=== PATIENT | male | born 1945 | race Caucasian/White ===

== ENCOUNTER → 2018-07-29 | Outpatient (CLI) | payer OTHER | LOC: M RAD 11:15 | DX: Z53.9 Procedure and treatment not carried out, unspecified reason (principal) ==

== ENCOUNTER → 2018-08-10 | Outpatient (CLI) | payer OTHER ==
[~2018-08-10] MED LIST: PROHANCE 279.3MG/ML 15ML VIAL (A9576) As Ordered ONE; PROHANCE 279.3MG/ML 5ML VIAL (A9576) As Ordered ONE
--- NOTE | 2018-08-11 08:32 | REP ---
MRI IACs WITHOUT AND WITH CONTRAST: HISTORY: Left hearing loss. CONTRAST: ProHance 16 mL. Areas of increased signal intensity on T2-weighted images are present in the periventricular and subcortical white matter. This represents small vessel ischemic disease. There is no intraparenchymal hemorrhage, infarct, mass, or midline shift. The ventricular system and cortical sulci are dilated consistent with minimal volume loss. There is no extracerebral collection. There is no ___cerebellopontine angle mass ). The inner ear structures are normal in appearance. The mastoid air cells are clear. Minimal mucosal thickening is present in the maxillary sinuses. IMPRESSION: 1. Small vessel ischemic disease. 2. Minimal volume loss. Electronically Signed by Neel Wilson MD 08/11/2018 09:08 A
== END ==
LOC: M RAD 16:39
PROVIDERS: ATTEND Physician Assistant Surgical
DX: H90.A22 Sensorineural hearing loss, unilateral, left ear, with restricted hearing on the contralateral side (principal); R90.82 White matter disease, unspecified
CPT/HCPCS: 70553; A9576

== ENCOUNTER 2019-06-24 12:52 | Emergency (ER) | payer OTHER ==
[~2019-06-24] VITALS: Ht 172.7 cm; Wt 80.5 kg
[2019-06-24 14:06] LABS: HEMOGLOBIN 17.3 g/dl (13.5-17.5); MEAN CORPUSCULAR HEMOGLOBIN 31.7 pg (27.0-33.0); MEAN CORPUSCULAR HGB CONC 34.6 g/dl (32.0-36.5); MEAN CORPUSCULAR VOLUME 91.6 fl (80.0-96.0); PLATELET COUNT, AUTOMATED 378 10^3/uL (150-450); RED BLOOD COUNT 5.46 10^6/uL (4.30-6.10); WHITE BLOOD COUNT 13.2 10^3/uL (4.0-10.0)
[2019-06-24 14:34] LABS: ATYPICAL LYMPH 2 % (0-5); EOSINOPHILS 1 % (0-3); LYMPHOCYTES 36 % (16-44); MONOCYTES 11 % (0-5); NEUTROPHILS 50 % (28-66)
[2019-06-24 14:35] LABS: ANISOCYTOSIS 1+; PLATELET ESTIMATE NORMAL (NORMAL)
[2019-06-24 14:39] LABS: ALBUMIN 3.5 GM/DL (3.2-5.2); ALT/SGPT 33 U/L (12-78); BILIRUBIN,DIRECT 0.2 MG/DL (0.0-0.2); BILIRUBIN,TOTAL 0.7 MG/DL (0.2-1.0); BLOOD UREA NITROGEN 10 MG/DL (7-18); CALCIUM LEVEL 9.3 MG/DL (8.8-10.2); CARBON DIOXIDE LEVEL 29 MEQ/L (21-32); CHLORIDE LEVEL 111 MEQ/L (98-107); CREATININE FOR GFR 1.09 MG/DL (0.70-1.30); GLOMERULAR FILTRATION RATE > 60.0 (>42); GLUCOSE, FASTING 104 MG/DL (70-100); LIPASE 92 U/L (73-393); POTASSIUM SERUM 4.4 MEQ/L (3.5-5.1); SODIUM LEVEL 143 MEQ/L (136-145); TOTAL PROTEIN 7.4 GM/DL (6.4-8.2)
[2019-06-24] MEDS ORDERED: NS 1,000 ML IV ONE (15:30)
[2019-06-24] MEDS ORDERED: ISOVUE-370 76% 100ML VIAL (Q9967) As Ordered ONE (15:34)
--- NOTE | 2019-06-24 16:28 | REP ---
Clinical: Right lower quadrant pain. Technique: Axial contrast enhanced images from the lung bases to the pubic symphysis using 100 ml Isovue 370 intravenous contrast material with coronal and sagittal re-formations. Findings: Lung bases are clear. Visualized heart and pericardium normal. Liver, splenules, pancreas, gallbladder, bilateral adrenal glands and kidneys are essentially normal. The enteric system is without obstruction or acute inflammatory process. Normal terminal ileum and appendix identified in the right lower quadrant. Sigmoid diverticulosis noted without evidence for acute diverticulitis. Pelvis demonstrates normal bladder and age appropriate prostate/seminal vesicles. No ascites. No free air. No adenopathy. Abdominal aorta without aneurysm or dissection. Musculoskeletal structures demonstrate degenerative changes without focal osseous abnormality. Impression: 1. No evidence for acute abdominopelvic pathology appreciated. No ascites, focal inflammatory stranding, or adenopathy. 2. No evidence for bowel obstruction or acute process. Normal appendix in the right lower quadrant. 3. Scattered sigmoid diverticula without acute diverticulitis. Electronically Signed by Scout Cardenas MD 06/24/2019 04:19 P
[2019-06-24] MEDS ORDERED: CIPR500T3 PO (18:05)
[2019-06-24] MEDS ORDERED: CIPROFLOXACIN 500 MG TAB PO ONE (18:15)
[2019-06-24 21:15] VITALS: BP 134/74
== END 2019-06-24 21:27 | disposition home or self-care (01) ==
LOC: M ED 12:52
DX: N39.0 Urinary tract infection, site not specified (principal); E78.5 Hyperlipidemia, unspecified; N40.0 Benign prostatic hyperplasia without lower urinary tract symptoms; Z79.899 Other long term (current) drug therapy
CPT/HCPCS: 36415; 74177; 80048; 80076; 81001; 83690; 85025; 87086; 99284; Q9967

== ENCOUNTER 2023-09-15 07:38 | Day surgery (SDC) | payer OTHER, MEDICARE ==
[~2023-09-15] VITALS: Ht 172.7 cm; Wt 77.2 kg
[~2023-09-15 07:38] MED LIST changes: +CIPR500T3 PO; +FINA5TAB2 PO; +NS 1,000 ML IV ONE; -PROHANCE 279.3MG/ML 15ML VIAL (A9576) As Ordered ONE; -PROHANCE 279.3MG/ML 5ML VIAL (A9576) As Ordered ONE; +VITMTA PO
[2023-09-15] MEDS ORDERED: propofoL 200 MG/20 ML VIAL As Ordered ONE (11:24)
[2023-09-15 11:40] VITALS: TEMP 98.3
[2023-09-15 12:04] VITALS: BP 129/66; O2SAT 96
== END 2023-09-15 12:19 | disposition home or self-care (01) ==
LOC: M OPP 07:38
PROVIDERS: ATTEND Internal Medicine Gastroenterology
DX: Z12.11 Encounter for screening for malignant neoplasm of colon (principal); Z86.010 Personal history of colon polyps; D12.6 Benign neoplasm of colon, unspecified; K63.5 Polyp of colon; K57.30 Diverticulosis of large intestine without perforation or abscess without bleeding; Z79.899 Other long term (current) drug therapy